=== PATIENT | female | born 1975 | race Caucasian/White ===

== ENCOUNTER 2016-09-01 13:32 | Observation (INO) | payer OTHER ==
--- NOTE | 2016-09-01 13:42 | GHP ---
[f rep st] PREOP HISTORY AND PHYSICAL CHIEF COMPLAINT: Menorrhagia. HISTORY OF PRESENT ILLNESS: The patient is a 40-year-old female who had been taking Sprintec control pills for cycle control; however, began to have some breakthrough bleeding so it was recommended to stop her pill to enable a regular period and reset her cycle. She stopped her last pill on Tuesday, August 27 and then began to start having heavy vaginal bleeding on August 28. She was seen by our nurse practitioner, Naila Varma CNM, on August 30 in the office with complaints of heavy bleeding. A pelvic ultrasound was ordered. The patient was recommended to resume her control pills and started at a high dose to help stabilize the lining, so she is taking 3 pills per day. The patient states her bleeding has not improved. She had lab work done on that day which was significant for a hematocrit of 34%. Today, she states she is still having heavy bleeding with passage of large clots, almost the size of a plum. She is not having any pain. She does have tubal ligation for contraception. She did have a CBC prior to her visit with me, and her hematocrit has now dropped down to 27%. She does endorse dizziness and fatigue. PHYSICAL EXAMINATION: VITAL SIGNS: Blood pressure is 130/76, pulse is 92. GENERAL: She is not in any apparent distress. PELVIC: On speculum exam, she has active bleeding from the uterus. She has approximately 100 mL of blood and clot in her vaginal vault. Pelvic ultrasound reveals a large, 1-2 cm mass in her uterus with the uterus being filled with blood. The mass could be consistent with clot or fibroid. MEDICAL HISTORY: Significant for IBS and hypothyroidism. She has a recent normal thyroid function test. SURGICAL HISTORY: Significant for 2 previous deliveries as well as a hysteroscopy and D and C back in October for vaginal bleeding and thickened endometrial lining. At that time, she had a normal-appearing uterine cavity, and her pathology at that time was normal. SHIPPING AND RECEIVING COORDINATOR HISTORY: Noncontributory. ASSESSMENT AND PLAN: This is a 40-year-old female with menorrhagia and hemorrhage and anemia. Ultrasound reveals a significant amount of blood in the uterus as well as probable clot. Recommend proceeding to dilation and curettage immediately to decrease the amount of vaginal bleeding that she is having. Discussed with the patient that she will be admitted as inpatient for observation overnight to monitor her hematocrit and her vaginal bleeding. We will also begin tranexamic acid to help with the bleeding as well. The patient agrees to this procedure. /[id number]/MODL MTDD
[2016-09-01] MEDS ORDERED: LIDOCAINE 1% 30 ML SDV ONE (13:53)
[2016-09-01] MEDS ORDERED: fentaNYL 100 MCG/2 ML INJ ONE ×2 (13:55→14:04)
[2016-09-01] MEDS ORDERED: SCOPOLAMINE HYDROBROMIDE 1.5 MG PATCH TD ONE (13:55)
[2016-09-01] MEDS ORDERED: PROPOFOL/EMULSION 500 MG/50 ML BOTTLE IV ONE (13:56)
[2016-09-01] MEDS ORDERED: MIDAZOLAM 2 MG/2 ML VIAL ONE (14:05)
[2016-09-01] MEDS ORDERED: LIDOCAINE 2% 5 ML SDV ONE (14:33)
[2016-09-01] MEDS ORDERED: ROCURONIUM 50 MG/5 ML VIAL ONE (14:33)
[2016-09-01] MEDS ORDERED: GLYCOPYRROLATE 0.2 MG/1 ML VIAL ONE (14:33)
[2016-09-01] MEDS ORDERED: SUCCINYLCHOLINE CHLORIDE*ANESTHESIA ONLY*200 MG/10 ML SYR IVP ONE (14:33)
[2016-09-01] MEDS ORDERED: SUGAMMADEX SODIUM 200 MG/2 ML VIAL IVP ONE (14:50)
[2016-09-01] MEDS ORDERED: ONDANSETRON 4 MG/2 ML VIAL IVP PRN (15:18)
[2016-09-01] MEDS ORDERED: HYDROCODONE/APAP 5/325 TAB PO PRN (15:18)
[2016-09-01] MEDS ORDERED: ONDANSETRON DISINTEGRATING 4 MG TAB PO PRN (15:18)
[2016-09-01] MEDS ORDERED: NS 1,000 ML IV SCH (15:30)
--- NOTE | 2016-09-01 15:47 | GOP ---
[f rep st] OPERATIVE REPORT DATE OF OPERATION: 09/01/2016 SURGEON: Georgie Zheng MD KILN FURNITURE CASTER: None. ANESTHESIA: General. PREOPERATIVE DIAGNOSIS: Menorrhagia. POSTOPERATIVE DIAGNOSIS: Menorrhagia. PROCEDURE PERFORMED: hysteroscopy/dilation and curettage FINDINGS: Proliferative endometrium. Possible endometrial polyp. SPECIMENS: Endometrial curettings and endometrial polyp. ESTIMATED BLOOD LOSS: 100 mL. INDICATIONS: The patient is a 40-year-old female who presented to clinic with complaints of heavy vaginal bleeding for the past 5 days. Her hematocrit had dropped from 34% to 27% this morning over the past 2 days. She stated she is feeling dizzy and lightheaded. On exam in clinic she was bleeding profusely from the vagina and ultrasound revealed possible clot or mass in the uterus. Recommend proceeding to exam and dilation and curettage and hysteroscopy with possible polyp or fibroid, which the patient agreed to. DESCRIPTION OF PROCEDURE: The patient was taken to the operating room. She was prepped and draped in normal sterile fashion in high dorsal lithotomy position. She emptied her bladder prior to the procedure. A surgical time-out was performed. The patient had a bivalved speculum placed in the patient's vagina. The anterior aspect of the cervix was grasped with a single-tooth tenaculum. The patient received a paracervical block of 1% lidocaine. The cervix was dilated to 6 mm. The hysteroscope was placed into the uterine cavity. She had proliferative endometrium and a couple of small endometrial polyps that were removed with the polyp blade of the Truclear. She then had sharp curettage with the curette. Fluid deficit was 100 mL. The patient was stable to recovery room. The single-tooth tenaculum was removed. Hemostasis was obtained with silver nitrate and Bovie cautery as she appeared to be having some bleeding from her cervix. The patient tolerated the procedure well. All counts were correct x2. PROCEDURE PERFORMED: Hysteroscopy and dilation and curettage. COMPLICATIONS: None. OUTCOME: To the recovery room. /[id number]/MODL MTDD
[2016-09-01 16:02] LABS: % IMMATURE GRANULYOCYTES 0.4 % (0.0-1.1); ABSOLUTE IMMATURE GRANULOCYTES 0.03 10^3/uL (0.00-0.10); ADD DIFF? NO; ADD MORPH? NO; ADD SCAN? NO; ATYPICAL LYMPHOCYTE FLAG 10 (0-99); FRAGMENT RBC FLAG 0 (0-99); HEMATOCRIT 24.4 % (38.0-47.0); LEFT SHIFT FLG 0 (0-99); LIPEMIA HEMOLYSIS FLAG 80 (0-99); MEAN CELL HEMOGLOBIN 29.6 pg (27.9-34.1); MEAN CELL HEMOGLOBIN CONCENTR. 32.8 g/dL (32.4-36.7); MEAN CELL VOLUME 90.4 fL (81.5-99.8); PLATELET CLUMPS FLAG 0 (0-99); PLATELET COUNT 324 10^3/uL (150-400)
[2016-09-01] MEDS: ACETAMINOPHEN 325 MG TAB PO PRN ×2 (16:31→20:50)
[2016-09-01] MEDS: TRANEXAMIC ACID 650 MG TAB PO SCH (21:49)
[2016-09-01 21:57] VITALS: O2SAT 95
[2016-09-02 06:34] LABS: % IMMATURE GRANULYOCYTES 0.4 % (0.0-1.1); ABSOLUTE IMMATURE GRANULOCYTES 0.04 10^3/uL (0.00-0.10); ADD DIFF? NO; ADD MORPH? NO; ADD SCAN? NO; ATYPICAL LYMPHOCYTE FLAG 0 (0-99); FRAGMENT RBC FLAG 0 (0-99); HEMATOCRIT 23.3 % (38.0-47.0); HEMOGLOBIN 7.7 g/dL (12.6-16.3); LEFT SHIFT FLG 10 (0-99); LIPEMIA HEMOLYSIS FLAG 80 (0-99); MEAN CELL HEMOGLOBIN 29.7 pg (27.9-34.1); PLATELET CLUMPS FLAG 0 (0-99); PLATELET COUNT 313 10^3/uL (150-400); RED BLOOD CELL COUNT 2.59 10^6/uL (4.18-5.33); RED CELL DISTRIBUTION WIDTH 14.1 % (11.5-15.2)
[2016-09-02 08:37] VITALS: RESP 20
[2016-09-02] MEDS: TRANEXAMIC ACID 650 MG TAB PO SCH (08:44)
[2016-09-02] MEDS: ACETAMINOPHEN 325 MG TAB PO PRN (08:44)
[2016-09-02 12:59] VITALS: BP 106/58; PULSE 66; TEMP 98.1
--- NOTE | 2016-09-02 13:02 | SOAPPROG ---
SOAP Progress Note Assessment/Plan: Assessment: 40 yo female s/p emergent d&c for menorrhagia, pod 1, doing okay overall. Plan: 09/02/16 12:59 Monitor of dizziness, shortness of breath this am, feels fatigued with walking, recommend checking cbc to determine if transfusion is indicated. Tranexamic acid has stabilized bleeding. Will continue until follow up appt on Tuesday. Will plan on insertion of IUD on Tuesday in clinic, if bleeding does not improve, will likely need hysterectomy. If cbc stable, will plan on discharge this afternoon. Subjective: 40 yo female s/p emergent d&c for menorrhagia, pod 1, doing okay overall. Feels fatigued, but no shortness of breath. Objective: Vital Signs Temp Pulse Resp BP Pulse Ox 36.7 C 66 20 106/58 L 95 09/02/16 12:57 09/02/16 12:57 09/02/16 12:57 09/02/16 12:57 09/02/16 02:48 Laboratory Results 09/02/16 06:25 09/01/16 09/02/16 09/03/16 05:59 05:59 05:59 Intake Total 2440 Output Total 681 Balance 1759 Physical Exam - Physical Exam General Appearance: no apparent distress ICD10 Worksheet Patient Problems: Problems Problem Status Onset Status post repeat low transverse section Acute
[2016-09-02 13:16] LABS: % IMMATURE GRANULYOCYTES 0.4 % (0.0-1.1); ABSOLUTE IMMATURE GRANULOCYTES 0.05 10^3/uL (0.00-0.10); ADD DIFF? NO; ADD MORPH? NO; ADD SCAN? NO; ATYPICAL LYMPHOCYTE FLAG 10 (0-99); FRAGMENT RBC FLAG 0 (0-99); LEFT SHIFT FLG 0 (0-99); LIPEMIA HEMOLYSIS FLAG 80 (0-99); MEAN CELL HEMOGLOBIN 29.4 pg (27.9-34.1); MEAN CELL VOLUME 91.9 fL (81.5-99.8); MEAN PLATELET VOLUME 8.9 fL (8.7-11.7); PLATELET CLUMPS FLAG 0 (0-99); PLATELET COUNT 349 10^3/uL (150-400); RED BLOOD CELL COUNT 2.72 10^6/uL (4.18-5.33); RED CELL DISTRIBUTION WIDTH 14.2 % (11.5-15.2)
== END 2016-09-02 14:19 | disposition home or self-care (01) ==
LOC: INTOOBSV 13:32 → FLD 13:32 → F3N 13:45 → FLD 16:45
PROVIDERS: ADMIT Obstetrics & Gynecology; ATTEND Obstetrics & Gynecology
PROC: 0UB98ZX Excision of Uterus, Via Natural or Artificial Opening Endoscopic, Diagnostic (ICD-10-PCS; principal; 2016-09-01 14:15)
DX: N92.0 Excessive and frequent menstruation with regular cycle (principal); E03.9 Hypothyroidism, unspecified; K58.9 Irritable bowel syndrome, unspecified
CPT/HCPCS: 58558; C1782; G0378; J0330; J2250; J2704; J3010

== ENCOUNTER → 2016-09-01 | Outpatient (CLI) | payer OTHER ==
[~2016-09-01] MED LIST: LIDO/EPI 1% **for epidural** 30 ML SDV ONE; SILVER NITRATE APPLICATOR 1 APPL TP ONE
== END ==
LOC: FIMAGING 11:22
PROVIDERS: ATTEND Midwife
DX: N92.1 Excessive and frequent menstruation with irregular cycle (principal); Z53.9 Procedure and treatment not carried out, unspecified reason

== ENCOUNTER → 2016-12-15 | Outpatient (CLI) | payer OTHER | LOC: FIMAGING 11:47 | PROVIDERS: ATTEND Obstetrics & Gynecology | DX: Z87.42 Personal history of other diseases of the female genital tract (principal); Z09 Encounter for follow-up examination after completed treatment for conditions other than malignant neoplasm ==

== ENCOUNTER → 2017-06-07 | Outpatient (CLI) | payer OTHER | LOC: FIMAGING 13:54 | PROVIDERS: ATTEND Obstetrics & Gynecology | DX: Z12.31 Encounter for screening mammogram for malignant neoplasm of breast (principal) ==